=== PATIENT | female | born 1935 | race Caucasian/White ===

== ENCOUNTER → 2017-01-10 | Outpatient (CLI) | payer OTHER, MEDICARE ==
[~2017-01-10] VITALS: Ht 154.9 cm; Wt 58.2 kg
[~2017-01-10] MED LIST: ASPIRIN81 M2 PO; FIBERCON625 M1 PO; LOPRESSOR100 M1 PO; STOOL SOFTENER100 MG PO
--- NOTE | ~2017-01-10 | HPC ---
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 Green for evaluation of pain in neck, left shoulder, arm. The patient notes on intake, she has also had some chronic pain in low back, right buttock and leg with episodic exacerbations and weakness in the right lower extremity. The patient notes the neck pain has been present for about 5 years. She did have a steroid injection by Dr. Green about a month ago with general improvement of symptoms. She notes the neck and left shoulder is starting to get uncomfortable again, rates pain anywhere from 2-10 on a 0-10 visual analog scale. Regarding the low back, right buttock and leg episodic pain, she denies weakness, paresthesia, bowel or bladder continence changes or saddle anesthesia. She does not use a cane, though states occasionally she feels that that leg is going to "give out." She has done physical therapy over time. She is intolerant of nonsteroidal anti-inflammatory medications due to tenuous renal function. She has not done any care center manager. She does get massages occasionally with some efficacy. She describes pain as constant, aching, sharp, throbbing, gnawing and momentary (lower extremity). REVIEW OF SYSTEMS: Complete review of systems was attached to chart and was gone over with the patient, history of hypertension, treated with metoprolol; again the aforementioned chronic renal insufficiency with renal function attenuated by nonsteroidal anti-inflammatory agents. 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 She did have some left-sided weakness following this procedure. She had physical therapy and has generally recovered, though she still has some modest weakness in the left side and does have a right lid ptosis and significantly diminished extraocular muscle tone. 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 She has had some surgery on that right eye in 2006. 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 Pain impact score is 39/70. PHYSICAL EXAMINATION: GENERAL: Reveals a 5 feet, 127 pounds female, BMI is 24.2 kilograms per meter squared. VITAL SIGNS: Blood pressure is elevated today 153/108, pulse 79, respirations are 14. NEUROLOGIC: Cranial nerves 2-12 are generally intact. Again, does have some right eye ptosis and the right eye has nominal movement. She has dysconjugate gaze. Cervical range of motion is somewhat limited. She does have exacerbation [address] [address] PAIN MANAGEMENT CONSULTATION Name: MOISETRENT Room #: REG LON Stark#: [id number] Admission: 01/10/17 Attend Phys: Miguel Finnegan DO Discharge: Date of : 35 Report #: [id number] of pain radiating to the left shoulder with cervical extension (positive Lhermitte's sign). Upper extremity strength is generally symmetric. Passive rotation of the shoulder does not cause any pain. Deep tendon reflexes are preserved for biceps, triceps, brachioradialis. Grasp is symmetric. HEART: Regular and rhythmical without murmur. LUNGS: Clear to auscultation. ABDOMEN: Benign. MUSCULOSKELETAL: Rises from chair using armrest. Gait is tandem. Lumbar flexion is good at 90 degrees. At this time, lower extremity strength is symmetric at 4/5. Negative straight leg raise and patellar and Achilles reflexes are preserved. DIAGNOSTIC STUDIES: There are no diagnostic studies of the lumbar spine available, x-rays of the cervical spine from 01/10/2017 notes cervical spondylosis at C4-C5, C5-C6 and C6-C7. ASSESSMENT: 1. Symptomatic cervical radiculopathy by clinical exam and history. 2. Cervical spondylosis. 3. Component of lumbar radiculopathy and possibly some sacroiliac joint dysfunction in a very pleasant 81-year-old female. RECOMMENDATIONS: After discussing with the patient today, we have elected to move forward with cervical epidural injection under fluoroscopy. Again, nonsteroidal anti-inflammatory medications are contraindicated. I did take the liberty of writing for physical therapy for core strength and balance exercises. We will also order an x-ray of the lumbar spine. We will have the patient follow up in 3 weeks for reevaluation. Thank you for allowing me to participate in this patient's care. We will keep you abreast of her progress. PROCEDURE: Cervical epidural steroid injection under fluoroscopy. PROCEDURE NOTE: After written and informed consent was obtained including risk of dural puncture, spinal cord trauma, paralysis and increased pain, the patient was taken to the fluoroscopy suite and placed in the prone position, with appropriate abdominal bolstering, neck was flexed, palms under the thighs. Skin was prepped with ChloraPrep. Sterile draping was applied. Skin wheal with 1% Xylocaine was raised. A 22-gauge 3-1/2 inch epidural Tuohy needle was placed via a midline approach at the C7-T1 interspace, advanced under biplanar fluoroscopy using continuous loss of resistance. With appropriate loss of resistance at the expected depth on lateral view, the glass loss of resistance syringe was disconnected. A low volume extension tubing was connected to the needle and a 5 mL syringe. Negative aspiration for cerebrospinal fluid or blood was noted. A 1 mL of Omnipaque was injected which showed spread within the [facility] [address] [place] [address] PAIN MANAGEMENT CONSULTATION Name: TRENT PHIPPS Room #: REG [facility].#: [id number] Admission: 01/10/17 Attend Phys: Miguel Finnegan DO Discharge: Date of : 35 Report #: [id number] epidural space on biplanar fluoroscopy. This was followed with 80 mg of triamcinolone plus 1 mL of 1.5% preservative Xylocaine. Needle was withdrawn to the interspinous ligament, 0.5 mL of Xylocaine was used to flush the needle. The needle was then completely withdrawn. The area was cleansed. Band-Aid was applied. The patient was allowed to move off the procedure table and ambulated to the recovery room, monitored for an appropriate period of time, discharged in good and stable condition. By: 0920 1123 Miguel Finnegan, DO /nt
[2017-01-10 08:12] VITALS: BP 153/108
== END ==
LOC: PAIN 06:32
DX: M47.892 Other spondylosis, cervical region (principal); M54.12 Radiculopathy, cervical region; M53.3 Sacrococcygeal disorders, not elsewhere classified; I12.9 Hypertensive chronic kidney disease with stage 1 through stage 4 chronic kidney disease, or unspecified chronic kidney disease; N18.9 Chronic kidney disease, unspecified; F32.9 Major depressive disorder, single episode, unspecified; Z86.73 Personal history of transient ischemic attack (TIA), and cerebral infarction without residual deficits; Z98.890 Other specified postprocedural states; Z90.710 Acquired absence of both cervix and uterus; Z79.82 Long term (current) use of aspirin; Z79.899 Other long term (current) drug therapy

== ENCOUNTER → 2017-03-20 | Outpatient (CLI) | payer OTHER, MEDICARE ==
[~2017-03-20] VITALS: Ht 152.4 cm; Wt 58.7 kg
--- NOTE | ~2017-03-20 | HPC ---
[facility] [place] [address] PAIN MANAGEMENT CONSULTATION Name: TRENT PHIPPS Room #: REG [facility] Aram.#: [id number] Admission: 03/20/17 Attend Phys: Miguel Finnegan DO Discharge: Date of : 35 Report #: [id number] THIS REPORT FOR: //name// CC: Megan Finnegan HISTORY OF PRESENT ILLNESS: The patient is an 81-year-old female, prior seen in the pain clinic on 01/10/2017. The patient was diagnosed with symptomatic cervical radiculopathy, given a single epidural injection at that time. She returns to pain clinic today noting that the injection afforded 100% relief for 2 months, pain has gradually begun to recur. She rates the pain at 3-4 on VAS. Pain is in the neck, left shoulder and arm. PHYSICAL EXAMINATION: Shows an 81-year-old female, BMI is 25.3 kilograms per meter squared. Vital signs show modest hypertension 145/95, pulse 74, respirations 16. Cervical range of motion is modestly limited. Positive Lhermitte's. Symptoms going to the left arm and hand. Hand grasp is modestly diminished in the left side. ASSESSMENT: Symptomatic cervical radiculopathy by clinical exam and history, excellent relief following prior injection. RECOMMENDATION: Repeat epidural injection under fluoroscopy today. Follow simply as needed. PROCEDURE: Cervical epidural injection under fluoroscopy. PROCEDURE NOTE: After written and informed consent was obtained including risk of dural puncture, spinal cord trauma, paralysis and increased pain, the patient was taken to the fluoroscopy suite and placed in the prone position, with appropriate abdominal bolstering, neck was flexed, palms under the thighs. Skin was prepped with ChloraPrep. Sterile draping was applied. Skin wheal with 1% Xylocaine was raised. A 22-gauge 3-1/2 inch epidural Tuohy needle was placed via a midline approach at the C7-T1 interspace, advanced under biplanar fluoroscopy using continuous loss of resistance. With appropriate loss of resistance at the expected depth on lateral view, the glass loss of resistance syringe was disconnected. A low volume extension tubing was connected to the needle and a 5 mL syringe. Negative aspiration for cerebrospinal fluid or blood was noted. A 1 mL of Omnipaque was injected which showed spread within the epidural space on biplanar fluoroscopy. This was followed with 80 mg of triamcinolone plus 1 mL of 1.5% preservative Xylocaine. Needle was withdrawn to the interspinous ligament, 0.5 mL of Xylocaine was used to flush the needle. The needle was then completely withdrawn. The area was cleansed. Band-Aid was applied. The patient was allowed to move off the procedure table and ambulated [address] [address] PAIN MANAGEMENT CONSULTATION Name: TRENT PHIPPS Room #: REG [facility] Mi#: [id number] Admission: 03/20/17 Attend Phys: Miguel Finnegan DO Discharge: Date of : 35 Report #: [id number] to the recovery room, monitored for an appropriate period of time, discharged in good and stable condition. By: [id number] [id number] Miguel Finnegan DO /nt
[2017-03-20 11:19] VITALS: BP 145/95
== END | disposition home or self-care (01) ==
LOC: PAIN 01-31 07:59
DX: M54.12 Radiculopathy, cervical region (principal); I10 Essential (primary) hypertension

== ENCOUNTER → 2017-05-14 | Outpatient (CLI) | payer OTHER, MEDICARE ==
[~2017-05-14] MED LIST changes: +TRAMADOL 50 MG50 MG PO
== END ==
LOC: CAT 10:45
DX: M47.22 Other spondylosis with radiculopathy, cervical region (principal)

== ENCOUNTER → 2017-05-16 | Outpatient (CLI) | payer OTHER, MEDICARE ==
[~2017-05-16] VITALS: Ht 152.4 cm; Wt 54.4 kg
--- NOTE | ~2017-05-16 | HPC ---
[facility] [place] [address] PAIN MANAGEMENT CONSULTATION Name: TRENT PHIPPS Room #: REG LON Stark#: [id number] Admission: 05/16/17 Attend Phys: Miguel Finnegan DO Discharge: Date of : 35 Report #: [id number] THIS REPORT FOR: //name// CC: Megan Finnegan HISTORY OF PRESENT ILLNESS: The patient is a delightful 81-year-old female being treated for symptomatic cervical radiculopathy. Single injection on 01/10/2017 afforded near 100% relief for greater than a month, pain recurred. I did a second injection on 03/20/2017. She was seen in followup on 05/12/2017, notes she only had about 50% relief following that injection. She had ongoing cervical radicular symptoms with radiation to the left shoulder and arm. We elected to get a CT myelogram at that time (the patient has a metal vascular coil on the right side of her neck). I reviewed the CT findings with the patient today. CT that was accomplished on 05/14/2017 did show disk space narrowing with complex osteophyte at C6-C7 with bilateral neural foraminal narrowing at C4-C5. I reviewed the images with the patient today. Again, a fairly significant change at C6-C7. With ongoing cervical radicular symptoms, the patient rates 6 on a VAS, primarily radiating to the neck, left shoulder to the elbow. ASSESSMENT: Symptomatic cervical radiculopathy by clinical exam and history. RECOMMENDATIONS: 1. Cervical epidural injection under fluoroscopy today. 2. The patient was given contact information for Dr. Satya Fonseca at [facility] and for [facility] at [facility]. Suggest she follow up with neurosurgery for opinion on more definitive intervention. We did suggest the patient get a disc for a CT exam from 05/14/2017 (this was accomplished at [facility]). ASSESSMENT: Symptomatic cervical radiculopathy. PROCEDURE: Cervical epidural injection under fluoroscopy. PROCEDURE NOTE: After written and informed consent was obtained including risk of dural puncture, spinal cord trauma, paralysis and increased pain, the patient was taken to the fluoroscopy suite and placed in the prone position, with appropriate abdominal bolstering, neck was flexed, palms under the thighs. Skin was prepped with ChloraPrep. Sterile draping was applied. Skin wheal with 1% Xylocaine was raised. A 22-gauge 3-1/2 inch epidural Tuohy needle was placed via a midline approach at the C7-T1 interspace, advanced under biplanar fluoroscopy using continuous loss of resistance. With appropriate loss of resistance at the expected depth on lateral view, the glass loss of resistance syringe was disconnected. A low volume extension tubing was connected to the needle and a 5 mL syringe. Negative aspiration for cerebrospinal fluid or blood [facility] [address] [place] [address] PAIN MANAGEMENT CONSULTATION Name: TRENT PHIPPS Room #: REG LON Stark#: [id number] Admission: 05/16/17 Attend Phys: Miguel Finnegan DO Discharge: Date of : 35 Report #: [id number] was noted. A 1 mL of Omnipaque was injected which showed spread within the epidural space on biplanar fluoroscopy. This was followed with 80 mg of triamcinolone plus 1 mL of 1.5% preservative Xylocaine. Needle was withdrawn to the interspinous ligament, 0.5 mL of Xylocaine was used to flush the needle. The needle was then completely withdrawn. The area was cleansed. Band-Aid was applied. The patient was allowed to move off the procedure table and ambulated to the recovery room, monitored for an appropriate period of time, discharged in good and stable condition. <ELECTRONICALLY SIGNED> By: Miguel Finnegan DO 05/19/17 0929 [id number] Miguel Finnegan DO /nt
[2017-05-16 10:09] VITALS: BP 128/81
== END ==
LOC: PAIN 08:12
DX: M54.12 Radiculopathy, cervical region (principal); Z88.6 Allergy status to analgesic agent; Z79.82 Long term (current) use of aspirin; Z79.899 Other long term (current) drug therapy